=== PATIENT | male | born 1950 | race Caucasian/White ===

== ENCOUNTER 2020-05-11 08:15 | Day surgery (SDC) | payer MEDICARE, BC ==
[~2020-05-11] VITALS: Ht 161.3 cm; Wt 81.4 kg
[~2020-05-11 08:15] MED LIST: ASCO500 PO; BENA20TA10 PO; CANA100T PO; DILT120T PO; FENO48TA20 PO; FLEC100T3 PO; GLIP5 PO; HEPARIN SODIUM 1000 UNITS/NS 1,000 ML ONE; HYDR25TA2 PO; IOHEXOL 300 MG/ML 100 ML VIAL ONE; IOHEXOL 300 MG/ML 150 ML VIAL ONE; IOHEXOL 300 MG/ML 50 ML VIAL ONE; LIDOCAINE/PF 1% 30 ML VIAL ONE; METF-446 PO; OMEG-136 PO; SITA50 PO; SODIUM BICARBONATE 50 MEQ/50 ML VIAL ONE; SODIUM CHLORIDE 0.9% 1,000 ML IV ONE; SODIUM CHLORIDE 0.9% 1,000 ML ONE; VITA1CAP20 PO
[2020-05-11 09:32] LABS: GLUCOMETER DEV NAME(LOC) SDS.; GLUCOSE,POINT OF CARE 168 MG/DL (70-110)
[2020-05-11] MEDS ORDERED: IOHEXOL 300 MG/ML 100 ML VIAL ONE (10:35)
[2020-05-11 10:50] VITALS: BP 158/80
[2020-05-11] MEDS ORDERED: FentaNYL CITRATE PF 100 MCG/2 ML VIAL ONE (10:56)
[2020-05-11] MEDS ORDERED: MIDAZOLAM HCL 2 MG/2 ML VIAL ONE (10:56)
[2020-05-11] MEDS ORDERED: LIDOCAINE 1% 30 ML/SOD BICARB 8.4% 4 ML SQ ONE (11:15)
[2020-05-11] MEDS ORDERED: IOHEXOL 300 MG/ML 100 ML VIAL IARTER ONE (11:15)
[2020-05-11] MEDS ORDERED: HEPARIN SODIUM 1000 UNITS/NS 1,000 ML IARTER ONE (11:15)
[2020-05-11] MEDS ORDERED: SODIUM CHLORIDE 0.9% 500 ML IV ONE (11:15)
[2020-05-11] MEDS ORDERED: FentaNYL CITRATE PF 100 MCG/2 ML VIAL IVP ONE (11:15)
[2020-05-11] MEDS ORDERED: MIDAZOLAM HCL 2 MG/2 ML VIAL IVP ONE (11:15)
[2020-05-11] MEDS ORDERED: HEPARIN SODIUM,PORCINE 5,000 UNITS/ML VIAL IVP ONE (12:00)
[2020-05-11 12:10] VITALS: BP 129/76
[2020-05-11] MEDS ORDERED: METOPROLOL TARTRATE 50 MG TABLET PO ONE ×2 (16:45→17:30)
[2020-05-11] MEDS ORDERED: METOPROLOL TARTRATE 50 MG TABLET ONE (17:17)
[2020-05-11] MEDS ORDERED: METOPROLOL TARTRATE 25 MG TABLET PO ONE (17:30)
== END 2020-05-11 18:55 | disposition home or self-care (01) ==
LOC: CATHLAB 08:15
PROVIDERS: ATTEND Internal Medicine Interventional Cardiology
DX: I25.10 Atherosclerotic heart disease of native coronary artery without angina pectoris (principal); I35.0 Nonrheumatic aortic (valve) stenosis; E11.9 Type 2 diabetes mellitus without complications; E78.00 Pure hypercholesterolemia, unspecified; I10 Essential (primary) hypertension; Z72.89 Other problems related to lifestyle; Z98.890 Other specified postprocedural states; Z79.899 Other long term (current) drug therapy
CPT/HCPCS: 82962; 93005; 93460; 99152; 99153; C1760; J1644; J2250; J3010; J3490 ×2; J7030; Q9967 ×3